=== PATIENT | male | born 1995 | race Two or more races ===

== ENCOUNTER 2020-07-12 15:47 | Emergency (ER) | payer OTHER, SELFPAY ==
[~2020-07-12] VITALS: Ht 188 cm; Wt 88.5 kg
[2020-07-12 15:53] VITALS: BP 137/80
[2020-07-12] MEDS ORDERED: cefTRIAXone SOD 1,000 MG VL IM ONE (16:45)
[2020-07-12] MEDS ORDERED: methylPREDNISolone SOD SUCC 125 MG/2 ML VL IM ONE (16:45)
== END 2020-07-12 18:09 | disposition home or self-care (01) ==
LOC: ER 15:47
DX: J03.00 Acute streptococcal tonsillitis, unspecified (principal); Z20.822 Contact with and (suspected) exposure to COVID-19
CPT/HCPCS: 36415; 71045; 87426; 96372; 99284; J0696; J2930